=== PATIENT | female | born 2000 | race Caucasian/White ===

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

== ENCOUNTER → 2022-07-23 | Outpatient (CLI) | payer BC, MEDICAID ==
[2022-07-23 14:53] LABS: HEMATOCRIT 41.8 % (36.0-47.0); MEAN CORPUSCULAR HEMOGLOBIN 30.2 pg (27.0-33.0); MEAN CORPUSCULAR HGB CONC 33.5 g/dl (32.0-36.5); MEAN CORPUSCULAR VOLUME 90.3 fl (80.0-96.0); PLATELET COUNT, AUTOMATED 321 10^3/uL (150-450); RED BLOOD COUNT 4.63 10^6/uL (4.00-5.40); WHITE BLOOD COUNT 8.6 10^3/uL (4.0-10.0)
[2022-07-23 15:54] LABS: HIV 1&2 SCREEN CENTAUR NEGATIVE (NEGATIVE)
[2022-07-23 16:01] LABS: HEPATITIS C VIRUS ABY INDEX 0.1 INDEX (<0.8)
[2022-07-23 17:08] LABS: GC DNA AMPLIFICATION NEGATIVE (NEGATIVE)
== END ==
LOC: M PLALAB 10:12
PROVIDERS: ATTEND Advanced Practice Midwife
DX: Z34.01 Encounter for supervision of normal first pregnancy, first trimester (principal); Z36.89 Encounter for other specified antenatal screening

== ENCOUNTER → 2022-07-29 | Outpatient (CLI) | payer BC, MEDICAID | LOC: M PLALAB 08:42 | PROVIDERS: ATTEND Obstetrics & Gynecology | DX: Z34.80 Encounter for supervision of other normal pregnancy, unspecified trimester (principal) ==

== ENCOUNTER 2022-08-05 15:45 | Emergency (ER) | payer BC, MEDICAID ==
[~2022-08-05] VITALS: Ht 162.6 cm; Wt 88.6 kg
[2022-08-05] MEDS ORDERED: NS 1,000 ML IV ONE (16:25)
[2022-08-05] MEDS ORDERED: ONDANSETRON 4MG 2ML VIAL IV ONE (16:25)
[2022-08-05 16:59] LABS: BASO % 0.4 % (0.0-1.0); EOS % 0.4 % (0.0-3.0); HEMOGLOBIN 14.6 g/dl (12.0-15.5); LYMPH # 2.2 10^3/uL (1.5-5.0); LYMPH % 19.2 % (24.0-44.0); MEAN CORPUSCULAR HEMOGLOBIN 31.1 pg (27.0-33.0); MEAN CORPUSCULAR HGB CONC 35.6 g/dl (32.0-36.5); MEAN CORPUSCULAR VOLUME 87.2 fl (80.0-96.0); MONO # 0.5 10^3/uL (0.0-0.8); MONO % 4.4 % (2.0-8.0); NEUTROPHILS # 8.4 10^3/uL (1.5-8.5); NEUTROPHILS % 75.2 % (36.0-66.0); PLATELET COUNT, AUTOMATED 308 10^3/uL (150-450); WHITE BLOOD COUNT 11.2 10^3/uL (4.0-10.0)
[2022-08-05 17:23] LABS: ALBUMIN 3.9 G/DL (3.2-5.2); BILIRUBIN,DIRECT 0.2 MG/DL (<0.4); BILIRUBIN,TOTAL 0.6 MG/DL (0.3-1.2); TOTAL PROTEIN 7.5 G/DL (5.7-8.2)
[2022-08-05 17:36] LABS: HCG, SERUM QUANTITATIVE 48827.6 MIU/ML (<4.2)
[2022-08-05] MEDS ORDERED: CEPH500C PO (19:28)
[2022-08-05] MEDS ORDERED: CEPHALEXIN 500 MG CAP PO ONE (19:30)
[2022-08-05 19:40] VITALS: BP 135/64
== END 2022-08-05 19:48 | disposition home or self-care (01) ==
LOC: M ED 15:45
DX: O23.41 Unspecified infection of urinary tract in pregnancy, first trimester (principal); Z3A.13 13 weeks gestation of pregnancy; Z87.891 Personal history of nicotine dependence
CPT/HCPCS: 76801; 76857; 80047; 80076; 81001; 83605; 83690; 84702; 85025; 86850; 86900; 86901; 87040; 87086; 96361; 96374; 99284; J2405

== ENCOUNTER → 2022-09-30 | Outpatient (CLI) | payer BC, MEDICAID ==
[~2022-09-30] MED LIST: CEPH500C PO
== END ==
LOC: M WHC 12:05
PROVIDERS: ATTEND Obstetrics & Gynecology
DX: Z34.82 Encounter for supervision of other normal pregnancy, second trimester (principal); Z3A.21 21 weeks gestation of pregnancy

== ENCOUNTER → 2022-11-19 | Outpatient (CLI) | payer BC, MEDICAID ==
[2022-11-19 15:41] LABS: HEMATOCRIT 36.3 % (36.0-47.0); HEMOGLOBIN 12.4 g/dl (12.0-15.5); MEAN CORPUSCULAR HEMOGLOBIN 31.5 pg (27.0-33.0); MEAN CORPUSCULAR HGB CONC 34.2 g/dl (32.0-36.5); MEAN CORPUSCULAR VOLUME 92.1 fl (80.0-96.0); PLATELET COUNT, AUTOMATED 295 10^3/uL (150-450); RED BLOOD COUNT 3.94 10^6/uL (4.00-5.40); WHITE BLOOD COUNT 11.1 10^3/uL (4.0-10.0)
[2022-11-19 17:04] LABS: GC DNA AMPLIFICATION NEGATIVE (NEGATIVE)
== END ==
LOC: M PLALAB 11:03
PROVIDERS: ATTEND Obstetrics & Gynecology
DX: Z34.02 Encounter for supervision of normal first pregnancy, second trimester (principal)

== ENCOUNTER → 2022-11-26 | Outpatient (CLI) | payer BC, MEDICAID | LOC: M WHC 08:59 | PROVIDERS: ATTEND Advanced Practice Midwife | DX: Z34.82 Encounter for supervision of other normal pregnancy, second trimester (principal); Z3A.29 29 weeks gestation of pregnancy ==

== ENCOUNTER → 2022-12-08 | Outpatient (CLI) | payer BC, MEDICAID ==
[2022-12-09 19:06] LABS: ANTI PARVO VIRUS LEVEL IGG 4.8 index (0.0-0.8); ANTI PARVO VIRUS LEVEL IgM 0.1 index (0.0-0.8); CYTOMEGALOVIRUS IgG ANTIBODY <0.60 U/mL (0.00-0.59); CYTOMEGALOVIRUS IgM ANTIBODY <30.0 AU/mL (0.0-29.9); HERPES ZOSTER, VARICELLA IgG 225 index (Immune >165); HERPES ZOSTER, VARICELLA IgM <0.91 index (0.00-0.90); HSV TYPE I IgG SPECIFIC <0.91 index (0.00-0.90); HSV TYPE II IgG SPECIFIC 1.21 index (0.00-0.90); RUBELLA IgG FOR TORCH EVAL 4.58 index (Immune >0.99); TOXOPLASMA IgG ABY <3.0 IU/mL (0.0-7.1)
== END ==
LOC: M PLALAB 09:08
PROVIDERS: ATTEND Advanced Practice Midwife
DX: O36.5930 Maternal care for other known or suspected poor fetal growth, third trimester, not applicable or unspecified (principal)

== ENCOUNTER → 2022-12-11 | Outpatient (CLI) | payer BC, MEDICAID | LOC: M WHC 14:52 | PROVIDERS: ATTEND Obstetrics & Gynecology | DX: O36.5993 Maternal care for other known or suspected poor fetal growth, unspecified trimester, fetus 3 (principal); Z3A.32 32 weeks gestation of pregnancy ==

== ENCOUNTER → 2022-12-25 | Outpatient (CLI) | payer BC, MEDICAID | LOC: M WHC 15:55 | PROVIDERS: ATTEND Obstetrics & Gynecology | DX: O36.5933 Maternal care for other known or suspected poor fetal growth, third trimester, fetus 3 (principal); Z3A.34 34 weeks gestation of pregnancy ==

== ENCOUNTER → 2023-01-05 | Outpatient (REF) | payer BC | LOC: M SFHCPLAZ 10:03 | PROVIDERS: ATTEND Obstetrics & Gynecology | DX: O36.5930 Maternal care for other known or suspected poor fetal growth, third trimester, not applicable or unspecified (principal); Z3A.00 Weeks of gestation of pregnancy not specified ==

== ENCOUNTER → 2023-01-08 | Outpatient (CLI) | payer BC, MEDICAID | LOC: M WHC 11:27 | PROVIDERS: ATTEND Obstetrics & Gynecology | DX: O36.5930 Maternal care for other known or suspected poor fetal growth, third trimester, not applicable or unspecified (principal) ==

== ENCOUNTER → 2023-01-08 | Outpatient (CLI) | payer BC, MEDICAID | LOC: M WHC 11:30 | PROVIDERS: ATTEND Advanced Practice Midwife | DX: O36.5930 Maternal care for other known or suspected poor fetal growth, third trimester, not applicable or unspecified (principal); Z53.9 Procedure and treatment not carried out, unspecified reason ==

== ENCOUNTER → 2023-12-23 | Outpatient (CLI) | payer BC, MEDICAID ==
[~2023-12-23] MED LIST changes: +ACET-683 PO; +COLA100C5 PO; +IBUP-1022 PO; +NORE0.353 PO; +PRENTAB9 PO; +TUMS500C PO
== END ==
LOC: M WHC 13:29
PROVIDERS: ATTEND Obstetrics & Gynecology
DX: Z34.82 Encounter for supervision of other normal pregnancy, second trimester (principal)

== ENCOUNTER → 2024-01-31 | Outpatient (CLI) | payer BC, MEDICAID ==
[2024-01-31 17:46] LABS: GLUCOSE CHALLENGE TEST 1 HOUR 84 MG/DL (LESS THAN 140)
[2024-01-31 17:49] LABS: HEMATOCRIT 34.2 % (36.0-47.0); HEMOGLOBIN 11.6 g/dl (12.0-15.5); MEAN CORPUSCULAR HEMOGLOBIN 30.9 pg (27.0-33.0); MEAN CORPUSCULAR HGB CONC 33.9 g/dl (32.0-36.5); PLATELET COUNT, AUTOMATED 293 10^3/uL (150-450); RED BLOOD COUNT 3.76 10^6/uL (4.00-5.40); WHITE BLOOD COUNT 12.1 10^3/uL (4.0-10.0)
[2024-01-31 18:22] LABS: HIV 1&2 SCREEN NEGATIVE (NEGATIVE)
[2024-01-31 18:30] LABS: HEPATITIS C VIRUS ABY INDEX 0.08 INDEX (<0.8)
[2024-01-31 19:07] LABS: GC DNA AMPLIFICATION NEGATIVE (NEGATIVE)
== END ==
LOC: M PLALAB 12:51
PROVIDERS: ATTEND Obstetrics & Gynecology
DX: Z34.92 Encounter for supervision of normal pregnancy, unspecified, second trimester (principal)

== ENCOUNTER → 2024-01-31 | Outpatient (CLI) | payer BC, MEDICAID | LOC: M WHC 12:47 | PROVIDERS: ATTEND Obstetrics & Gynecology | DX: Z34.92 Encounter for supervision of normal pregnancy, unspecified, second trimester (principal) ==

== ENCOUNTER 2024-02-18 10:12 | Outpatient (CLI) | payer BC, MEDICAID ==
[~2024-02-18] VITALS: Ht 160 cm; Wt 99.2 kg
[2024-02-18 10:29] VITALS: BP 145/80
[2024-02-18 11:59] VITALS: BP 136/75
[2024-02-18] MEDS ORDERED: HOME MED LIST COMPLETE! XX SCH (13:05)
== END 2024-02-18 12:11 | disposition home or self-care (01) ==
LOC: M LDO 10:12
PROVIDERS: ATTEND Obstetrics & Gynecology
DX: O36.8130 Decreased fetal movements, third trimester, not applicable or unspecified (principal); O09.893 Supervision of other high risk pregnancies, third trimester; O99.343 Other mental disorders complicating pregnancy, third trimester; F41.9 Anxiety disorder, unspecified; Z3A.30 30 weeks gestation of pregnancy
CPT/HCPCS: 59025; 76815; G0463

== ENCOUNTER → 2024-03-22 | Outpatient (REF) | payer BC, MEDICAID | LOC: M PLALAB 10:10 | PROVIDERS: ATTEND Nurse Practitioner Family | DX: O09.893 Supervision of other high risk pregnancies, third trimester (principal); Z3A.35 35 weeks gestation of pregnancy ==

== ENCOUNTER → 2024-08-30 | Outpatient (REF) | payer BC, MEDICAID ==
[~2024-08-30] MED LIST changes: +OMEP40CA4 PO
[2024-09-05 14:12] LABS: HPV APTIMA Detected (Not Detected)
== END ==
LOC: M SFHCWAGY 13:21
PROVIDERS: ATTEND Obstetrics & Gynecology
DX: Z12.4 Encounter for screening for malignant neoplasm of cervix (principal); R87.610 Atypical squamous cells of undetermined significance on cytologic smear of cervix (ASC-US)

== ENCOUNTER → 2024-12-01 | Outpatient (CLI) | payer OTHER, BC, MEDICAID ==
[~2024-12-01] MED LIST changes: +ISIB1TAB
[2024-12-01 18:07] LABS: BASO # 0.1 10^3/uL (0.0-0.2); BASO % 0.7 % (0.0-1.0); EOS # 0.1 10^3/uL (0.0-0.5); EOS % 1.7 % (0.0-3.0); LYMPH # 2.8 10^3/uL (1.5-5.0); LYMPH % 33.3 % (24.0-44.0); MONO # 0.5 10^3/uL (0.0-0.8); MONO % 6.0 % (2.0-8.0); NEUTROPHILS # 4.8 10^3/uL (1.5-8.5); NEUTROPHILS % 58.2 % (36.0-66.0); PLATELET COUNT, AUTOMATED 383 10^3/uL (150-450)
[2024-12-01 18:13] LABS: TOTAL 25(OH) VITAMIN D 40.5 NG/ML (20.0-100.0)
[2024-12-01 18:14] LABS: IRON (FE) 24 UG/DL (50-170); VITAMIN B12 LEVEL 495 PG/ML (211-911)
[2024-12-01 18:15] LABS: ALT/SGPT 30 U/L (7.0-40); AST/SGOT 26 U/L (<34); CALCIUM LEVEL 9.3 MG/DL (8.5-10.1); CARBON DIOXIDE LEVEL 26 MMOL/L (20-31); CHLORIDE LEVEL 107 MMOL/L (98-107); CREATININE FOR GFR 0.63 MG/DL (0.55-1.30); GLOMERULAR FILTRATION RATE > 90.0 (>60); POTASSIUM SERUM 4.3 MMOL/L (3.5-5.1); SODIUM LEVEL 144 MMOL/L (136-145)
[2024-12-01 18:42] LABS: ESTIMATED AVERAGE GLUCOSE 94.0 MG/DL (60-110)
== END ==
LOC: M WUC 14:22
PROVIDERS: ATTEND Nurse Practitioner Family
DX: R20.0 Anesthesia of skin (principal); M21.922 Unspecified acquired deformity of left upper arm